=== PATIENT | male | born 2000 | race Two or more races ===

== ENCOUNTER 2022-05-11 00:21 | Emergency (ER) | payer SELFPAY ==
[~2022-05-11] VITALS: Ht 167.6 cm; Wt 64.0 kg
[2022-05-11 01:59] VITALS: BP 132/72
[2022-05-11 03:07] LABS: BASOPHILS % 0.3 % (0.0-2.0); EOSINOPHILS % 0.2 % (0.0-5.0); HEMATOCRIT. 40.1 % (42.0-52.0); HEMOGLOBIN. 13.6 g/dL (14.0-18.0); LYMPHOCYTES % 16.1 % (20.0-50.0); MEAN CORPUSCULAR HEMOGLOBIN 31.1 pg (28.0-32.0); MEAN CORPUSCULAR VOLUME 91.9 fL (80.0-94.0); MEAN PLATELET VOLUME 8.4 fl (7.4-10.4); MONOCYTES % 8.4 % (2.0-8.0); PLATELET 322 x1000/uL (130-400); RED BLOOD CELL COUNT 4.36 mill/uL (4.7-6.1); RED CELL DISTRIBUTION WIDTH 14.2 % (11.6-14.6)
[2022-05-11 03:16] LABS: CHLORIDE 108 mEq/L (98-107)
[2022-05-11 03:23] LABS: ETHANOL BLOOD 206 mg/dL
== END 2022-05-11 05:11 | disposition home or self-care (01) ==
LOC: ER 00:30
DX: F10.129 Alcohol abuse with intoxication, unspecified (principal); Y90.7 Blood alcohol level of 200-239 mg/100 ml
CPT/HCPCS: 36415; 80053; 80320; 82962; 85025; 99283; G0480